=== PATIENT | female | born 1965 | race Caucasian/White ===

== ENCOUNTER 2018-06-25 10:21 | Emergency (ER) | payer OTHER ==
[~2018-06-25 10:21] MED LIST: BACTRIM DS 8001 TAB PO; BENTYL20 MG PO; PROTONIX 40MG T40 MG PO; TIROSINT50 MCG PO; VALSARTAN HCTZ PO
[2018-06-25 14:13] LABS: ABSOLUTE BASOPHIL COUNT 0 /CUMM (0.0-0.2); ABSOLUTE EOSINOPHIL COUNT 0.4 /CUMM (0.0-0.7); ABSOLUTE GRANULOCYTE CT 3.5 /CUMM (1.4-6.5); ABSOLUTE LYMPH COUNT 1.9 /CUMM (1.2-3.4); ABSOLUTE MONOCYTE COUNT 0.3 /CUMM (0.10-0.60); BASOPHIL % 0.6 % (0.0-2.0); EOSINOPHIL % 6.9 % (0-5); GRANULOCYTE % 57.2 % (42.2-75.2); MEAN CORPUSCULAR HGB 30.7 PG (27.0-31.0); MEAN CORPUSCULAR HGB CONC 34.2 G/DL (33.0-37.0); MEAN PLATELET VOLUME 9.1 FL (7.4-10.4); PLATELET COUNT 218 /CUMM (130-400); RBC DISTRIBUTION WIDTH 13.5 % (11.5-14.5); RED BLOOD CELL CT 4.45 /CUMM (4.20-5.40); WHITE BLOOD CELL COUNT 6.2 /CUMM (4.8-10.8)
--- NOTE | 2018-06-25 14:15 | RADIOLOGY REPORT ---
EXAMINATION: XR CHEST CLINICAL INFORMATION: Chest discomfort. COMPARISON: 10/27/2016 TECHNIQUE: 2 views of the chest were obtained. FINDINGS: Lungs are well expanded and clear. No pneumothorax or pleural effusion. Cardiac silhouette is normal in size. Aortic arch is slightly uncoiled. The hilar contours are normal. The visualized bones are intact. Gas is seen within the splenic flexure of the colon. The visualized loops of bowel are in the normal size range. There appears to be gas and fluid in the stomach. No pneumoperitoneum. IMPRESSION: 1. No acute pulmonary disease. 2. Mild gaseous distention of bowel in the partially visualized left upper quadrant of the abdomen. No pneumoperitoneum.
[2018-06-25 16:20] VITALS: BP 120/72
--- NOTE | 2018-06-25 16:22 | ED GENERAL ADULT ---
History of Present Illness General Chief Complaint: General Adult Stated Complaint: SWELLING IN NECK AND HINDS Source: patient Exam Limitations: no limitations Vital Signs & Intake/Output Vital Signs & Intake/Output Vital Signs Date Time Temp Pulse Resp B/P B/P Pulse O2 O2 Flow FiO2 Mean Ox Delivery Rate 06/25 1620 98.4 74 20 120/72 98 Room Air 06/25 1445 Room Air 06/25 1036 98.3 71 18 165/98 98 Room Air Allergies Coded Allergies: MDX - PCN (penicillin) (PCN (PENICILLIN)) (UNKNOWN 10/04/15) Reconcile Medications Dicyclomine Hydrochloride (Bentyl) 20 MG TAB 1 TAB PO 4 TIMES/DAY PRN ABDOMINAL PAIN Levothyroxine Sodium (Tirosint) 50 MCG CAPSULE 1 TAB PO DAILY THYROID ( Reported) Pantoprazole Sodium (Protonix) 40 MG TAB 40 MG PO DAILY ACID REFLUX Sulfamethoxazole/Trimethopri (Bactrim Ds 800 MG-160 MG) 1 TAB TAB 1 TAB PO BID UTI [VALSARTAN-HCTZ 160-1] 1 TAB PO DAILY HTN (Reported) Triage Note: 52 YO FEMALE TO TRIAGE FOR EVAL OF L SIDE OF NECK SWELLING AND ITCHINES. STATES THIS HAS BEEN GOING ON FOR 5 DAYS. ALSO C/O HINDS'S. STATES SHE WAS RECENTLY TREATED FOR H.PYLORI AND SINCE THE TREATMENT SHE HAS BEEN BELCHING SINCE (TREATMENT 2 YEARS AGO) Triage Nurses Notes Reviewed? yes Onset: Abrupt Duration: weeks HPI: 52 yo female with a history of H.pylori, fatty liver disease, hypothyroidism, presents today for swelling in her left neck for the last 5 days. The swelling first appeared five days ago and was scratchy. She admits to having chills and fatigue that started two weeks ago. She had a stool guiac that came back positive for bacteria in her stool. She has been managing with naturopathic care. She is concerned for the neck swelling that started five days ago and thinks it could be in relation to her constant flatus. During the last two year she has had a constant flatus/bleching that leads to periodic burping throughout the day along with neck pain and headache. She was tested with upper gi series, endoscopy, and barium swallow to no specific diagnosis. 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 Denies any nausea, vomiting, constipation, chest pain, abdominal pain, dizziness, cough, sob, and fever. this has been going on for 2 years. (Jake Klein) Past History Travel History Traveled to [place] past 21 day No Medical History Any Pertinent Medical History? see below for history Neurological: NONE EENT: NONE Cardiovascular: hypertension Respiratory: NONE Gastrointestinal: H.PYLORI Hepatic: hepatic steatosis Renal: NONE Musculoskeletal: NONE Psychiatric: NONE Endocrine: THYROID Blood Disorders: NONE Cancer(s): NONE HAND RUG CLEANER/Reproductive: NONE Surgical History Surgical History: N Psychosocial History What is your primary language Divehi Tobacco Use: Never used Family History Hx Contributory? No (Jake Klein) Review of Systems Review of Systems Constitutional: Reports: see HPI, chills. EENTM: Reports: see HPI. Respiratory: Reports: no symptoms, see HPI. Cardiovascular: Reports: no symptoms, see HPI. GI: Reports: see HPI, bloating. Genitourinary: Reports: no symptoms, see HPI. Musculoskeletal: Reports: see HPI, neck pain. Skin: Reports: no symptoms, see HPI. Neurological/Psychological: Reports: see HPI, headache. Hematologic/Endocrine: Reports: no symptoms, see HPI. Immunologic/Allergic: Reports: no symptoms. All Other Systems: Reviewed and Negative (Jake Klein) Physical Exam Physical Exam General Appearance: well developed/nourished, no apparent distress, alert, awake Head: atraumatic, normal appearance Eyes: Bilateral: normal appearance, PERRL, EOMI. Ears, Nose, Throat: normal pharynx, normal ENT inspection Neck: supple, full range of motion, tender lateral, Mild soft tissue swelling left anterior cervical Respiratory: normal breath sounds, chest non-tender, no respiratory distress Cardiovascular: regular rate/rhythm Gastrointestinal: normal bowel sounds, soft, non-tender, no organomegaly Back: normal inspection, normal range of motion Extremities: normal inspection, normal capillary refill, normal range of motion Neurologic/Psych: no motor/sensory deficits, awake, alert, oriented x 3, normal gait, normal mood/affect Skin: intact, normal color Core Measures ACS in differential dx? No CVA/TIA Diagnosis: No Sepsis Present: No Sepsis Focused Exam Completed? No (Jake Klein) Progress Differential Diagnoses I considered the following diagnoses in my evaluation of the patient: Plan of Care: Orders Procedure Date/time Status COMPREHENSIVE METABOLIC PANEL 06/25 1344 Complete CBC WITHOUT DIFFERENTIAL 06/25 1344 Complete Laboratory Tests 06/25/18 1405: Anion Gap 11, Estimated GFR > 60, BUN/Creatinine Ratio 23.3, Glucose 118 H, Calcium 9.6, Total Bilirubin 0.9, AST 21, ALT 17, Alkaline Phosphatase 64, Total Protein 7.4, Albumin 4.4, Globulin 3.0, Albumin/Globulin Ratio 1.5, CBC w Diff NO MAN DIFF REQ, RBC 4.45, MCV 90.0, MCH 30.7, MCHC 34.2, RDW 13.5, MPV 9.1, Gran % 57.2, Lymphocytes % 30.6, Monocytes % 4.7, Eosinophils % 6.9 H, Basophils % 0.6, Absolute Granulocytes 3.5, Absolute Lymphocytes 1.9, Absolute Monocytes 0.3, Absolute Eosinophils 0.4, Absolute Basophils 0 Diagnostic Imaging: Viewed by Me: CT Scan. Discussed w/RAD: CT Scan. Radiology Impression: PATIENT: BARBIE HUTCHINSON PRESENT AGE: 52 PATIENT ACCOUNT NO: [id number] : 65 LOCATION: [facility] ORDERING PHYSICIAN: Jake PETTIT SERVICE DATE: 06/25/18 EXAM TYPE: CAT - CT NECK WO IV CONTRAST EXAMINATION: CT NECK WITHOUT CONTRAST CLINICAL INFORMATION: Left- sided neck pain and swelling. COMPARISON: No relevant prior imaging. TECHNIQUE: English And Reading Instructor images were obtained. CT acquisition of the neck was performed without contrast. Data was reformatted into multiplanar images at the acquisition workstation. DLP: 419.32 mGy-cm FINDINGS: There is a 3 mm calculus located along the expected course of the left submandibular ducts at the posterior margin of the left mylohyoid muscle. This finding is best illustrated on axial image 39 of 98 series 2. The submandibular glands are otherwise unremarkable. The nasopharyngeal and oropharyngeal mucosal spaces are symmetric. Parapharyngeal and retromaxillary fat is preserved. Fabrication Inspector spaces are normal. The parotid glands are normal. The tongue base and epiglottis are normal. Preepiglottic fat is preserved. Glottic and subglottic airways are normal. The thyroid gland is normal and the remainder of the visualized visceral soft tissues are normal. No pathologically enlarged cervical lymph nodes. No mediastinal or axillary adenopathy is visualized within the [id number] of this examination. The lung apices are clear. The aortic arch apex is grossly unremarkable. Carotid spaces are normal. There is no acute osseous finding. No worrisome lytic or blastic osseous lesion. Grossly no evidence of canal compromise. No bony neuroforaminal encroachment. Limited visualization of intracranial structures reveals no abnormal finding. IMPRESSION: The diagnostic accuracy of this examination is limited due to the absence of intravenous contrast. Findings are consistent with left submandibular sialolithiasis. Specifically there is a 3 mm calculus located within the submandibular duct at its junction with the left submandibular gland. DICTATED BY: Parminder Palma MD DATE/TIME DICTATED:06/25/181703 SASH FINISHER:BECKY DATE/TIME TRANSCRIBED:06/25/181703 CONFIDENTIAL, DO NOT COPY WITHOUT APPROPRIATE AUTHORIZATION. <Electronically signed in Other Vendor System> SIGNED BY: Parminder Palma MD 06/25/18 1721, PATIENT: BARBIE HUTCHINSON PRESENT AGE: 52 PATIENT ACCOUNT NO: [id number] : 65 LOCATION: [facility] ORDERING PHYSICIAN: Scarlett Perdomo PA-C SERVICE DATE: 06/25/18 EXAM TYPE: RAD - XRY-CHEST XRAY, TWO VIEWS EXAMINATION: XR CHEST CLINICAL INFORMATION: Chest discomfort. COMPARISON: 2016 TECHNIQUE: 2 views of the chest were obtained. FINDINGS: Lungs are well expanded and clear. No pneumothorax or pleural effusion. Cardiac silhouette is normal in size. Aortic arch is slightly uncoiled. The hilar contours are normal. The visualized bones are intact. Gas is seen within the splenic flexure of the colon. The visualized loops of bowel are in the normal size range. There appears to be gas and fluid in the stomach. No pneumoperitoneum. IMPRESSION: 1. No acute pulmonary disease. 2. Mild gaseous distention of bowel in the partially visualized left upper quadrant of the abdomen. No pneumoperitoneum. DICTATED BY: Grey Rocha MD DATE/TIME DICTATED:06/25/181407 SASH FINISHER:BECKY DATE/TIME TRANSCRIBED:06/25/181407 CONFIDENTIAL, DO NOT COPY WITHOUT APPROPRIATE AUTHORIZATION. <Electronically signed in Other Vendor System> SIGNED BY: Grey Rocha MD 06/25/18 7886 Initial ED EKG: none (Lit PETTIT,Jake) Departure Departure Disposition: HOME OR SELF CARE Condition: Stable Clinical Impression Primary Impression: Salivary gland calculi Secondary Impressions: Belching Referrals: Tj SANTIZO,Fanta Philip (PCP/Family) Additional Instructions: Follow-up with ear nose and throat doctor. Sour candies at home for salivary gland stone. Follow back up with patient navigator in regards to your chronic belching and burping. Please go over all results of today's visit with your primary care doctor. Contact your primary care doctor to let them know you were here in the emergency room. There may be nonspecific findings which may not be related to your visit today here in the emergency room but may require further evaluation and chronic monitoring by your primary care doctor. If you had a laceration today the chance of foreign body always remains. You should follow-up with your primary care doctor for recheck in 3-5 days for a wound check. If you had an x-ray done there is a chance that a fracture could have been missed on initial read and you should follow-up with your primary care doctor for repeat x-rays if symptoms persist. If your blood pressure was elevated here in the emergency room please have rechecked by [facility] primary care doctor within the next 48. If you were prescribed a narcotic here in the emergency room or any type of controlled substances you're not allowed to drive while taking this medication or operate any type of heavy machinery. Narcotics can make you feel lightheaded dizziness nausea and can cause constipation. You may need to last picker a stool softener. Thank you for choosing [facility] emergency room. Please return to the emergency room immediately if you have any other concerns worsening of symptoms. Departure Forms: Customer Survey General Discharge Information Comments 06/25/2018 10:22:37 PM Patient clinically looks well. Patient is no apparent distress. Nontoxic- appearing. The belching and burping has been going on for 2 years. Patient was primarily here for her swelling to the neck. Some mild swelling appreciated on exam. No supraclavicular lymphadenopathy. No signs of infection. Patient clinically looks well. Symptoms are likely consistent with salivary gland stone. Patient was referred back to her PCP. She denies any chest pain or shortness of breath. She was told to follow-up with her GI doctor for her continued chronic GI symptoms. (Jake Klein) PA/NEEDLE VALVE OPERATOR Co-Sign Statement Statement: ED Attending supervision documentation- [] I saw and evaluated the patient. I have also reviewed all the pertinent lab results and diagnostic results. I agree with the findings and the plan of care as documented in the PA's/NEEDLE VALVE OPERATOR's documentation. [x] I have reviewed the ED Record and agree with the PA's/NEEDLE VALVE OPERATOR's documentation. [] Additions or exceptions (if any) to the PAs/NEEDLE VALVE OPERATOR's note and plan are summarized below: [] (Damaso SANTIZO,[facility]) Critical Care Note Critical Care Note Critical Care Time: non-applicable (Jake Klein)
--- NOTE | 2018-06-25 17:21 | CT SCAN REPORT ---
EXAMINATION: CT NECK WITHOUT CONTRAST CLINICAL INFORMATION: Left-sided neck pain and swelling. COMPARISON: No relevant prior imaging. TECHNIQUE: Tugboat Pilot images were obtained. CT acquisition of the neck was performed without contrast. Data was reformatted into multiplanar images at the acquisition workstation. DLP: 419.32 mGy-cm FINDINGS: There is a 3 mm calculus located along the expected course of the left submandibular ducts at the posterior margin of the left mylohyoid muscle. This finding is best illustrated on axial image 39 of 98 series 2. The submandibular glands are otherwise unremarkable. The nasopharyngeal and oropharyngeal mucosal spaces are symmetric. Parapharyngeal and retromaxillary fat is preserved. Software Quality Test Engineer spaces are normal. The parotid glands are normal. The tongue base and epiglottis are normal. Preepiglottic fat is preserved. Glottic and subglottic airways are normal. The thyroid gland is normal and the remainder of the visualized visceral soft tissues are normal. No pathologically enlarged cervical lymph nodes. No mediastinal or axillary adenopathy is visualized within the [id number] of this examination. The lung apices are clear. The aortic arch apex is grossly unremarkable. Carotid spaces are normal. There is no acute osseous finding. No worrisome lytic or blastic osseous lesion. Grossly no evidence of canal compromise. No bony neuroforaminal encroachment. Limited visualization of intracranial structures reveals no abnormal finding. IMPRESSION: The diagnostic accuracy of this examination is limited due to the absence of intravenous contrast. Findings are consistent with left submandibular sialolithiasis. Specifically there is a 3 mm calculus located within the submandibular duct at its junction with the left submandibular gland.
== END 2018-06-25 17:44 ==
LOC: ERH 10:21
PROVIDERS: Physician Assistant Medical
DX: K11.5 Sialolithiasis (principal); R14.2 Eructation; I10 Essential (primary) hypertension; E03.9 Hypothyroidism, unspecified; K76.0 Fatty (change of) liver, not elsewhere classified
CPT/HCPCS: 71046; 93005; 93010